=== PATIENT | male | born 1965 | race Caucasian/White ===

== ENCOUNTER 2022-01-28 11:32 | Inpatient (IN) | payer OTHER ==
[~2022-01-28] VITALS: Ht 167.6 cm; Wt 67.1 kg
[2022-01-28 12:27] LABS: HEMOGLOBIN 8.5 gm/dl (14.0-17.5); RED BLOOD COUNT 3.34 M/UL (4.20-5.50); WHITE BLOOD COUNT 8.2 K/UL (4.5-11.0)
[2022-01-28 12:54] LABS: BUN/CREATININE RATIO 13 (0-10)
[2022-01-29 04:41] LABS: HEMOGLOBIN 8.3 gm/dl (14.0-17.5); RED BLOOD COUNT 3.32 M/UL (4.20-5.50); WHITE BLOOD COUNT 9.3 K/UL (4.5-11.0)
[2022-01-29 05:08] LABS: BUN/CREATININE RATIO 16 (0-10)
[2022-01-30 02:37] LABS: HEMOGLOBIN 8.1 gm/dl (14.0-17.5); RED BLOOD COUNT 3.25 M/UL (4.20-5.50); WHITE BLOOD COUNT 8.8 K/UL (4.5-11.0)
[2022-01-30 03:04] LABS: BUN/CREATININE RATIO 23 (0-10)
[2022-01-31 04:11] LABS: HEMOGLOBIN 8.3 gm/dl (14.0-17.5); RED BLOOD COUNT 3.29 M/UL (4.20-5.50)
[2022-01-31 04:36] LABS: BUN/CREATININE RATIO 21 (0-10)
[2022-02-01 03:21] LABS: HEMOGLOBIN 7.9 gm/dl (14.0-17.5); RED BLOOD COUNT 3.13 M/UL (4.20-5.50); WHITE BLOOD COUNT 11.6 K/UL (4.5-11.0)
[2022-02-01 03:58] LABS: BUN/CREATININE RATIO 25 (0-10)
[2022-02-02 05:00] LABS: BUN/CREATININE RATIO 19 (0-10)
[2022-02-02 05:06] LABS: HEMOGLOBIN 8.1 gm/dl (14.0-17.5); RED BLOOD COUNT 3.19 M/UL (4.20-5.50); WHITE BLOOD COUNT 12.4 K/UL (4.5-11.0)
[2022-02-02] MEDS ORDERED: FERROUS SULFAT325 M2 PO (10:30)
[2022-02-02] MEDS ORDERED: LOPRESSOR 25 MG25 MG PO (10:30)
[2022-02-02] MEDS ORDERED: ATORVASTATIN CA20 MG PO (10:30)
[2022-02-02] MEDS ORDERED: VITAMIN C 500500 MG PO (10:30)
[2022-02-02] MEDS ORDERED: ASPIRIN EC81 MG PO (10:30)
[2022-02-02] MEDS ORDERED: CLOPIDOGREL75 MG PO (10:30)
== END 2022-02-02 12:29 | disposition home or self-care (01) | DRG 65 ==
LOC: ER1 11:32 → M/S 17:25 → CDU 17:25 → M/S 19:29
PROVIDERS: Physician Assistant; Physician Assistant Medical; ADMIT Internal Medicine
PROC: B24BZZZ Ultrasonography of Heart with Aorta (ICD-10-PCS; principal; 2022-01-29)
DX: I63.431 Cerebral infarction due to embolism of right posterior cerebral artery (principal); I50.22 Chronic systolic (congestive) heart failure; G81.94 Hemiplegia, unspecified affecting left nondominant side; Z20.822 Contact with and (suspected) exposure to COVID-19; D50.9 Iron deficiency anemia, unspecified; D75.839 Thrombocytosis, unspecified; F17.210 Nicotine dependence, cigarettes, uncomplicated; G89.29 Other chronic pain; E11.9 Type 2 diabetes mellitus without complications; I65.22 Occlusion and stenosis of left carotid artery; W18.30XA Fall on same level, unspecified, initial encounter; I11.0 Hypertensive heart disease with heart failure; H53.8 Other visual disturbances; E86.1 Hypovolemia; I08.1 Rheumatic disorders of both mitral and tricuspid valves; Z85.820 Personal history of malignant melanoma of skin; Z79.82 Long term (current) use of aspirin; Z98.42 Cataract extraction status, left eye; Z80.3 Family history of malignant neoplasm of breast; Z80.1 Family history of malignant neoplasm of trachea, bronchus and lung; Y92.090 Kitchen in other non-institutional residence as the place of occurrence of the external cause; Z71.6 Tobacco abuse counseling; Z79.4 Long term (current) use of insulin
CPT/HCPCS: ECHO; 36415; 70450; 70496; 70498; 70553; 80048; 80053; 80061; 82550; 82553; 82728; 83036; 83540; 83550; 84484; 85025; 85027; 85610; 85730; 87040; 92507; 92526; 92610; 93005; 93306; 97116-GP-CQ; 97162; 97166; 97530; 99285; A9577; G0378; J1756; J7030; Q9967; U0002

== ENCOUNTER → 2022-02-10 | Outpatient (CLI) | payer OTHER ==
[~2022-02-10] MED LIST: ASPIRIN EC81 MG PO; ATORVASTATIN CA20 MG PO; CLOPIDOGREL75 MG PO; FERROUS SULFAT325 M2 PO; LOPRESSOR 25 MG25 MG PO; VITAMIN C 500500 MG PO
[2022-02-10 17:27] LABS: HEMOGLOBIN 7.4 gm/dl (14.0-17.5); RED BLOOD COUNT 2.79 M/UL (4.20-5.50); WHITE BLOOD COUNT 9.3 K/UL (4.5-11.0)
== END ==
LOC: LAB 17:09
PROVIDERS: Internal Medicine Gastroenterology
DX: D64.9 Anemia, unspecified (principal)
CPT/HCPCS: 36415; 85027

== ENCOUNTER → 2022-02-17 | Day surgery (SDC) | payer OTHER | END | disposition home or self-care (01) | LOC: OR 06:50 | DX: D50.9 Iron deficiency anemia, unspecified (principal); C78.4 Secondary malignant neoplasm of small intestine; K64.0 First degree hemorrhoids; I10 Essential (primary) hypertension; F17.210 Nicotine dependence, cigarettes, uncomplicated; Z79.82 Long term (current) use of aspirin; Z79.899 Other long term (current) drug therapy | CPT/HCPCS: J2704; J7040 ==

== ENCOUNTER 2022-03-07 17:34 | Emergency (ER) | payer OTHER ==
[2022-03-07 18:30] LABS: RED BLOOD COUNT 1.78 M/UL (4.20-5.50)
[2022-03-07 18:41] LABS: HEMOGLOBIN 5.1 gm/dl (14.0-17.5)
[2022-03-07 19:16] LABS: BUN/CREATININE RATIO 20 (0-10)
[2022-03-08 17:03] LABS: HEMOGLOBIN 7.6 gm/dl (14.0-17.5)
[2022-03-09 20:55] LABS: HEMOGLOBIN 7.1 gm/dl (14.0-17.5); WHITE BLOOD COUNT 9.5 K/UL (4.5-11.0)
[2022-03-09 20:57] LABS: RED BLOOD COUNT 2.5 M/UL (4.20-5.50)
[2022-03-09 21:51] LABS: BUN/CREATININE RATIO 30 (0-10)
[2022-03-10 07:14] LABS: HEMOGLOBIN 7.2 gm/dl (14.0-17.5); RED BLOOD COUNT 2.47 M/UL (4.20-5.50); WHITE BLOOD COUNT 10.1 K/UL (4.5-11.0)
[2022-03-10 07:37] LABS: BUN/CREATININE RATIO 32 (0-10)
== END 2022-03-10 14:40 | disposition other institution (70) ==
LOC: ER1 17:34
PROVIDERS: Emergency Medicine; Family Medicine; Preventive Medicine Occupational Medicine
DX: D64.9 Anemia, unspecified (principal); C24.9 Malignant neoplasm of biliary tract, unspecified; K63.89 Other specified diseases of intestine; R79.89 Other specified abnormal findings of blood chemistry; Z20.822 Contact with and (suspected) exposure to COVID-19
CPT/HCPCS: 36430; 36600; 70450; 71045; 80053; 80307; 81001; 82550; 82553; 82803; 83605; 83690; 83880; 84484; 85014; 85018; 85025; 85652; 86140; 86850; 86900; 86901; 86920; 87086; 93005; 99285; G0480; P9016; Q9967; U0002

== ENCOUNTER 2022-04-24 19:56 | Emergency (ER) | payer OTHER ==
[~2022-04-24 19:56] MED LIST changes: +ATORVASTATIN CA40 MG PO; +FLAGYL 250 MG250 MG GT; +LEVOFLOXACIN750 MG PO; +MUPIROCIN22 GM TOP; +ZOFRAN ODT 4 MG4 MG PO
[2022-04-24 21:34] LABS: HEMOGLOBIN 10.6 gm/dl (14.0-17.5); RED BLOOD COUNT 4.01 M/UL (4.20-5.50); WHITE BLOOD COUNT 10.8 K/UL (4.5-11.0)
[2022-04-24 22:04] LABS: BUN/CREATININE RATIO 12 (0-10)
[2022-04-25] MEDS ORDERED: VITAMIN C500 M4 PO (09:47)
[2022-04-25] MEDS ORDERED: METOPROLOL TART25 MG PO (09:48)
[2022-04-25] MEDS ORDERED: FERROUS SULFAT325 MG PO (09:48)
[2022-04-25] MEDS ORDERED: PLAVIX75 MG PO (14:41)
== END 2022-04-25 16:27 | disposition home or self-care (01) ==
LOC: ER1 19:56
PROVIDERS: Emergency Medicine
DX: R41.82 Altered mental status, unspecified (principal); F17.200 Nicotine dependence, unspecified, uncomplicated
CPT/HCPCS: 36600; 70450; 70496; 70498; 71045; 80053; 80307; 81001; 82140; 82805; 83605; 83735; 84100; 85025; 85610; 87040; 87086; 96360; 99285; G0480; Q9967

== ENCOUNTER 2022-04-26 19:49 | Observation (INO) | payer OTHER ==
[~2022-04-26] VITALS: Ht 167.6 cm; Wt 56.2 kg
[~2022-04-26 19:49] MED LIST changes: +FERROUS SULFAT325 MG PO; +METOPROLOL TART25 MG PO; +PLAVIX75 MG PO; +VITAMIN C500 M4 PO
[2022-04-26 21:22] LABS: HEMOGLOBIN 10.4 gm/dl (14.0-17.5); RED BLOOD COUNT 4.02 M/UL (4.20-5.50); WHITE BLOOD COUNT 9.2 K/UL (4.5-11.0)
[2022-04-26 22:25] LABS: BUN/CREATININE RATIO 12 (0-10)
[2022-04-29 03:22] LABS: HEMOGLOBIN 10.6 gm/dl (14.0-17.5); RED BLOOD COUNT 3.99 M/UL (4.20-5.50)
[2022-04-29 04:06] LABS: BUN/CREATININE RATIO 20 (0-10)
[2022-04-30 02:24] LABS: HEMOGLOBIN 10.8 gm/dl (14.0-17.5); RED BLOOD COUNT 4.04 M/UL (4.20-5.50); WHITE BLOOD COUNT 8.5 K/UL (4.5-11.0)
[2022-04-30 02:42] LABS: BUN/CREATININE RATIO 18 (0-10)
[2022-05-04 02:33] LABS: HEMOGLOBIN 10.8 gm/dl (14.0-17.5); RED BLOOD COUNT 4.02 M/UL (4.20-5.50)
[2022-05-04 03:09] LABS: BUN/CREATININE RATIO 34 (0-10)
[2022-05-05 02:57] LABS: HEMOGLOBIN 9.6 gm/dl (14.0-17.5); WHITE BLOOD COUNT 9.2 K/UL (4.5-11.0)
[2022-05-05 02:59] LABS: RED BLOOD COUNT 3.6 M/UL (4.20-5.50)
[2022-05-05 03:13] LABS: BUN/CREATININE RATIO 33 (0-10)
[2022-05-06 03:30] LABS: BUN/CREATININE RATIO 27 (0-10)
[2022-05-07 03:40] LABS: HEMOGLOBIN 10.1 gm/dl (14.0-17.5); RED BLOOD COUNT 3.77 M/UL (4.20-5.50)
[2022-05-07 03:58] LABS: WHITE BLOOD COUNT 11.8 K/UL (4.5-11.0)
[2022-05-07 04:12] LABS: BUN/CREATININE RATIO 25 (0-10)
[2022-05-08 17:28] LABS: BUN/CREATININE RATIO 31 (0-10)
--- NOTE | 2022-05-14 19:03 | NUR ---
Per Dr. Rodriguez, patient is to be discharged home. Unable to reach a caregiver to release the patient to. Nirav Mccoy, contact listed in chart, has been unreachable. Per Dr. Rodriguez, the patient cannot be released until the caregiver is contacted. Spoke with Corporate Attorney, Mau, at approximately 1850 to inform of the situation and inability to reach a caregiver. This song writer was instructed to research previous admissions for another contact number. After research, on-coming RN Zaida, contacted [facility] who agreed to receive the patient, stated she is related to the patient and that she would be to the hospital in an hour to brick picker the patient.
--- NOTE | 2022-05-14 20:11 | NUR ---
UPON SHIFT REPORT I WAS INFORMED THAT PATIENT HAD NEW ORDERS TO BE DC HOME. BRONWYN AND FRANKLIN RN BOTH UNABLE TO REACH ANYONE TO PICK PATIENT UP FOR DC. I INSTRUCTED DAYSHIFT RN TO CONTACT CORE ANALYST BEFORE LEAVING. DAY SHIFT CONTACTED MAGDIEL () WHO SAID TO LOOK AT PREVIOUS ADMISSIONS FOR CONTACT INFO OR IF PATIENT A & O X3 WE CAN MAKE ARRANGEMENTS FOR TRANSPORTATION AND SEND HIM HOME. AFTER LOOKING AT PREVIOUS ADMISSIONS CONTACT INFO I WAS ABLE TO REACH PATIENTS SISTER (SYDNEY) WHO STATED SHE WILL BE HERE TO PICK PATIENT UP IN ABOUT AN HOUR. PATIENTS SISTER DID INFACT PICK HIM UP AND PATIENT WAS DISCHARGED HOME.
== END 2022-05-14 20:12 | disposition home or self-care (01) ==
LOC: ER1 19:49 → CDU 04-27 14:24 → M/S 04-27 14:24
PROVIDERS: Emergency Medicine; Internal Medicine; ADMIT Internal Medicine
DX: I69.354 Hemiplegia and hemiparesis following cerebral infarction affecting left non-dominant side (principal); Z72.3 Lack of physical exercise; D50.9 Iron deficiency anemia, unspecified; E11.9 Type 2 diabetes mellitus without complications; F17.200 Nicotine dependence, unspecified, uncomplicated; Z85.820 Personal history of malignant melanoma of skin; Z92.21 Personal history of antineoplastic chemotherapy; Z92.3 Personal history of irradiation; Z20.822 Contact with and (suspected) exposure to COVID-19; Z91.14 Patient's other noncompliance with medication regimen; Z90.49 Acquired absence of other specified parts of digestive tract
CPT/HCPCS: 0240U; 36415; 70450; 71101; 72100; 72131; 80048; 80053; 81001; 82550; 82553; 82962; 83036; 83735; 84100; 84484; 85025; 85027; 93005; 96374; 96376; 97110; 97110-GP-CQ; 97116; 97116-GP-CQ; 97162; 97166; 97530; 97530-GP-CQ; 99285; G0378; J2405